=== PATIENT | female | born 1960 | race Caucasian/White ===

== ENCOUNTER → 2017-10-21 | Outpatient (CLI) | payer OTHER ==
[2017-10-21 09:28] LABS: BILIRUBIN,URINE NEGATIVE (NEG); CLARITY,URINE CLEAR; COLOR,URINE YELLOW; GLUCOSE,URINE NEGATIVE (NEG); NITRITE,URINE NEGATIVE (NEG); PROTEIN,URINE NEGATIVE (NEG-TRACE); UROBILINOGEN,URINE 0.2 mg/dL (0.2 mg/dL)
[2017-10-21 10:01] LABS: BACTERIA,URINE 0 /HPF (0-FEW); RBC,URINE OCC /HPF (0-2); SQUAMOUS EPITHELIAL CELL,UR MOD /LPF; WBC,URINE OCC /HPF (0-4)
[2017-10-21 22:13] LABS: MRSA BY PCR Negative (Negative)
== END | disposition home or self-care (01) ==
LOC: SURGPAT 13:15
DX: M17.12 Unilateral primary osteoarthritis, left knee (principal); E11.9 Type 2 diabetes mellitus without complications; I10 Essential (primary) hypertension
CPT/HCPCS: 36415; 81001; 87086; 87641

== ENCOUNTER 2017-11-04 05:54 | Inpatient (IN) | payer OTHER ==
[2017-11-04] MEDS: IV RINGERS,LACTATED 1000ML 1,000 ML IV (06:51)
[2017-11-04] MEDS: HYDROcodone/APAP 7.5/325MG 1 TAB TABLET PO ×3 (06:52→21:40)
[2017-11-04] MEDS: MELOXICAM 7.5 MG TABLET PO (06:52)
[2017-11-04] MEDS ORDERED: ONDANSETRON PF 4 MG/2 ML VIAL. IV (07:00)
[2017-11-04] MEDS ORDERED: fentaNYL PF VIAL 100 MCG/2 ML VIAL IV ×2 (07:00→07:15)
[2017-11-04] MEDS ORDERED: LIDOCAINE 1% PF 2 ML VIAL. ID (07:00)
[2017-11-04] MEDS ORDERED: FAMOTIDINE 20 MG/2 ML VIAL (07:12)
[2017-11-04] MEDS ORDERED: ONDANSETRON PF 4 MG/2 ML VIAL. (07:12)
[2017-11-04] MEDS ORDERED: LIDOCAINE 2% PF Vial for OR 5 ML VIAL. (07:12)
[2017-11-04] MEDS ORDERED: PROPOFOL 20 ML IV (07:12)
[2017-11-04] MEDS ORDERED: DEXAMETHASONE SOD PHOS 20 MG/5 ML VIAL. (07:12)
[2017-11-04] MEDS ORDERED: ROCURONIUM 50 MG/5 ML VIAL. (07:12)
[2017-11-04] MEDS ORDERED: fentaNYL PF VIAL 100 MCG/2 ML VIAL ×2 (07:13→08:08)
[2017-11-04] MEDS ORDERED: MIDAZOLAM HCL/PF 2 MG/2 ML VIAL. (07:13)
[2017-11-04] MEDS ORDERED: MORPHINE SULFATE 4 MG/ML DISP.SYRIN. IV ×2 (07:15)
[2017-11-04] MEDS ORDERED: MORPHINE SULFATE 2 MG/ML DISP.SYRIN. IV (07:15)
[2017-11-04] MEDS ORDERED: PROCHLORPERAZINE 5 MG TABLET. PO (07:15)
[2017-11-04] MEDS ORDERED: MORPHINE SULFATE 10 MG/ML VIAL. IV (07:15)
[2017-11-04] MEDS ORDERED: 0.9 % SODIUM CHLORIDE 10 ML DISP.SYRIN. IV (07:15)
[2017-11-04] MEDS ORDERED: ACETAMINOPHEN 325 MG TABLET. PO (07:15)
[2017-11-04] MEDS ORDERED: diphenhydrAMINE 50 MG/ML VIAL IV (07:15)
[2017-11-04] MEDS ORDERED: CALCIUM CARBONATE 500 MG TAB.CHEW PO (07:15)
[2017-11-04] MEDS ORDERED: traMADol 50 MG TABLET PO ×2 (07:15)
[2017-11-04] MEDS ORDERED: DEXTROSE 50% 25 GM / 50ML DISP.SYRIN. IV (07:15)
[2017-11-04] MEDS ORDERED: PROCHLORPERAZINE 10 MG/2 ML VIAL. IV (07:15)
[2017-11-04] MEDS ORDERED: METOCLOPRAMIDE HCL 10 MG/2 ML VIAL. IV (07:15)
[2017-11-04] MEDS: VANCOMYCIN 1GM IVPB FOR OMNI 250 ML IV (07:20)
[2017-11-04 07:43] LABS: PARTIAL THROMBOPLASTIN TIME 27 SEC (24-38); PROTHROMBIN TIME PATIENT 12.1 SEC (11.7-14.0)
[2017-11-04] MEDS: TRANEXAMIC ACID 1,000 MG in IV NS 50ML -- 1ST BAG INJ (07:50)
[2017-11-04] MEDS: EPINEPHRINE IV (08:00)
[2017-11-04] MEDS: KETOROLAC IV (08:00)
[2017-11-04] MEDS: [UNRECOGNIZED DRUG - OTHER] IV (08:00)
[2017-11-04] MEDS: ROPIVACAINE 0.5% IV (08:00)
[2017-11-04] MEDS ORDERED: GLYCOPYRROLATE 1 MG/5 ML VIAL. (08:21)
[2017-11-04] MEDS ORDERED: NEOSTIGMINE METHYLSULFATE 5 MG/5 ML SYRINGE. (08:21)
[2017-11-04] MEDS ORDERED: SEVOFLURANE 61 TO 120 MINUTES. IH (08:44)
[2017-11-04] MEDS: TRANEXAMIC ACID 1,000 MG in IV NS 50ML -- 2ND BAG INJ (08:50)
[2017-11-04] MEDS ORDERED: KETOROLAC 30 MG/ML INJ FOR OR. INJ (08:51)
[2017-11-04] MEDS ORDERED: NON FORMULARY ITEM (Lisinopril/Hydrochlorothiazide (Lisinopril-Hctz 20-25 Mg Tab) 1 TAB) PO (09:00)
[2017-11-04] MEDS: PROCHLORPERAZINE 10 MG/2 ML VIAL. IV (09:49)
[2017-11-04] MEDS: fentaNYL PF VIAL 100 MCG/2 ML VIAL IV ×3 (09:49→15:22)
[2017-11-04] MEDS: MEPERIDINE PF 25 MG/ML VIAL. IV (10:17)
[2017-11-04 11:25] LABS: POC GLUCOSE 138 mg/dL (70-99)
[2017-11-04] MEDS: IV DEXTROSE 5 %-0.45 % NACL 1,000 ML IV ×2 (16:13→19:00)
[2017-11-04] MEDS: FERROUS SULFATE 325 MG TABLET. PO (16:52)
[2017-11-04] MEDS: WARFARIN 7.5 MG TABLET. PO (16:52)
[2017-11-04] MEDS: CELECOXIB 200 MG CAPSULE. PO (21:40)
[2017-11-04] MEDS: VANCOMYCIN 1 GM in IV 1/2 NORMAL SALINE 250 ML IV (22:49)
[2017-11-04] MEDS: KETOROLAC 30 MG, BUPIVACAINE MPF 0.25% 20 ML, EPINEPHrine 0.5 MG in TOTAL VOLUME SYRING... INT ART (23:01)
[2017-11-05] MEDS: HYDROcodone/APAP 7.5/325MG 1 TAB TABLET PO ×2 (01:15→15:01)
[2017-11-05] MEDS: oxyCODONE/APAP 5/325 1 TAB TABLET PO ×3 (03:32→12:29)
[2017-11-05] MEDS: KETOROLAC 30 MG, BUPIVACAINE MPF 0.25% 20 ML, EPINEPHrine 0.5 MG in TOTAL VOLUME SYRING... INT ART (04:43)
[2017-11-05] MEDS ORDERED: MAGNESIUM HYDROXIDE 2,400 MG/30 ML ORAL.SUSP. PO (06:00)
[2017-11-05 06:40] LABS: HEMATOCRIT 29.5 % (36.0-47.0); HEMOGLOBIN 9.8 g/dL (12.0-15.5); MEAN CORPUSCULAR HGB CONC 33 g/dL (31-37)
[2017-11-05 06:45] LABS: INR 1.3 (0.8-1.1); PROTHROMBIN TIME PATIENT 15.5 SEC (11.7-14.0)
[2017-11-05] MEDS: VANCOMYCIN 1 GM in IV 1/2 NORMAL SALINE 250 ML IV (07:19)
[2017-11-05] MEDS: FERROUS SULFATE 325 MG TABLET. PO ×2 (07:53→16:31)
[2017-11-05] MEDS: CELECOXIB 200 MG CAPSULE. PO ×2 (08:44→20:50)
[2017-11-05] MEDS: LISINOPRIL 20 MG TABLET PO (08:45)
[2017-11-05] MEDS: MULTIVITAMIN with MINERAL TABLET. PO (08:45)
[2017-11-05] MEDS: SENNOSIDES/DOCUSATE 8.6/50MG TABLET. PO (08:45)
[2017-11-05] MEDS: hydroCHLOROthiazide 25 MG TABLET PO (08:45)
[2017-11-05] MEDS ORDERED: BISACODYL 10 MG SUPP.RECT. PR (16:00)
[2017-11-05] MEDS: WARFARIN 5 MG TABLET. PO (16:31)
[2017-11-05] MEDS: HYDROcodone/APAP 10/325 1 TAB TABLET PO (18:13)
[2017-11-05] MEDS: oxyCODONE/APAP 7.5/325 1 TAB TABLET PO (21:45)
[2017-11-05] MEDS: ZOLPIDEM 5 MG TABLET. PO (22:39)
[2017-11-06] MEDS: HYDROcodone/APAP 10/325 1 TAB TABLET PO ×8 (00:43→22:35)
[2017-11-06 06:17] LABS: HEMOGLOBIN 9.4 g/dL (12.0-15.5); MEAN CORPUSCULAR HGB CONC 34 g/dL (31-37)
[2017-11-06 07:07] LABS: INR 1.4 (0.8-1.1); PROTHROMBIN TIME PATIENT 16.5 SEC (11.7-14.0)
[2017-11-06] MEDS: MULTIVITAMIN with MINERAL TABLET. PO (07:41)
[2017-11-06] MEDS: FERROUS SULFATE 325 MG TABLET. PO ×2 (07:41→16:03)
[2017-11-06] MEDS: CELECOXIB 200 MG CAPSULE. PO ×2 (07:41→21:08)
[2017-11-06] MEDS: SENNOSIDES/DOCUSATE 8.6/50MG TABLET. PO (07:42)
[2017-11-06] MEDS: hydroCHLOROthiazide 25 MG TABLET PO (09:00)
[2017-11-06] MEDS: LISINOPRIL 20 MG TABLET PO (09:00)
[2017-11-06] MEDS: WARFARIN 5 MG TABLET. PO (16:03)
[2017-11-06] MEDS: ZOLPIDEM 5 MG TABLET. PO (21:08)
[2017-11-07] MEDS: HYDROcodone/APAP 10/325 1 TAB TABLET PO ×5 (01:43→14:33)
[2017-11-07 04:25] LABS: HEMATOCRIT 27.3 % (36.0-47.0); HEMOGLOBIN 9.4 g/dL (12.0-15.5); MEAN CORPUSCULAR HGB CONC 34 g/dL (31-37)
[2017-11-07 04:31] LABS: INR 1.5 (0.8-1.1); PROTHROMBIN TIME PATIENT 17.2 SEC (11.7-14.0)
[2017-11-07] MEDS: FERROUS SULFATE 325 MG TABLET. PO (07:44)
[2017-11-07] MEDS: SENNOSIDES/DOCUSATE 8.6/50MG TABLET. PO (07:44)
[2017-11-07] MEDS: hydroCHLOROthiazide 25 MG TABLET PO (07:44)
[2017-11-07] MEDS: CELECOXIB 200 MG CAPSULE. PO (07:45)
[2017-11-07] MEDS: LISINOPRIL 20 MG TABLET PO (07:45)
[2017-11-07] MEDS: MULTIVITAMIN with MINERAL TABLET. PO (07:45)
[2017-11-07] MEDS: WARFARIN 5 MG TABLET. PO (14:32)
== END 2017-11-07 15:15 | disposition home health service (06) | DRG 470 ==
LOC: OPSVCIP 05:54 → 4 SOUTHEST 11:00
PROC: 0SRD0J9 Replacement of Left Knee Joint with Synthetic Substitute, Cemented, Open Approach (ICD-10-PCS; principal; 2017-11-04 07:30)
DX: M17.12 Unilateral primary osteoarthritis, left knee (principal); Z88.0 Allergy status to penicillin; Z88.6 Allergy status to analgesic agent; Z91.018 Allergy to other foods
CPT/HCPCS: 36415; 73560; 82962; 85014; 85018; 85610; 85730; 86850; 86900; 86901; 88305; 88311; 97110-GP; 97116-GP; 97150-GP; 97162-GP; 97165-GO; 97530-GO; 97530-GP; 97535-GO; C1713; J0171; J0780; J1100; J1885; J2060; J2175; J2250; J2405; J2704; J2710; J2795; J3010; J3370; J3490; J7030; J7120; S0028

== ENCOUNTER → 2018-06-23 | Outpatient (CLI) | payer OTHER ==
[2017-11-07 12:53] VITALS: BP 93/50
[~2018-06-23] MED LIST: ACIDOPHILUS PROB1 MG PO; CLIN300C8 PO; FERR325T14 PO; GABA600T2 PO; LEVO500T59 PO; LISI1TAB5 PO; LISI1TAB7 PO; MELO15TA23 PO; POTA20TA12 PO; TIZA4TAB PO; WARF-31 PO; WARF-78 PO
[2018-06-23 12:04] LABS: BASO # 0.1 x10^3/uL (0.0-0.2); BASO % 1 % (0-3); EOS # 0.3 x10^3/uL (0.0-0.7); EOS % 4 % (0-3); HEMATOCRIT 41.9 % (36.0-47.0); HEMOGLOBIN 14.5 g/dL (12.0-15.5); LYMPH # 3.3 x10^3/uL (1.0-4.8); LYMPH % 37 % (24-48); MEAN CORPUSCULAR HEMOGLOBIN 30 pg (25-35); MEAN CORPUSCULAR HGB CONC 35 g/dL (31-37); MEAN CORPUSCULAR VOLUME 86 fL (79-100); MONO # 0.6 x10^3/uL (0.0-1.1); MONO % 6 % (0-9); NEUT # 4.8 x10^3uL (1.8-7.7); NEUT % 52 % (31-73); PLATELET COUNT 201 x10^3/uL (140-400); RED BLOOD COUNT 4.85 x10^6/uL (3.50-5.40); RED CELL DISTRIBUTION WIDTH 14.4 % (11.5-14.5); WHITE BLOOD COUNT 9.1 x10^3/uL (4.0-11.0)
[2018-06-23 12:06] LABS: BILIRUBIN,URINE NEGATIVE (NEG); CLARITY,URINE CLEAR; COLOR,URINE YELLOW; NITRITE,URINE NEGATIVE (NEG); PH,URINE 7.5; PROTEIN,URINE NEGATIVE (NEG-TRACE); UROBILINOGEN,URINE 0.2 mg/dL (0.2 mg/dL)
[2018-06-23 12:12] LABS: PROTHROMBIN TIME PATIENT 12.8 SEC (11.7-14.0)
[2018-06-23 13:03] LABS: BACTERIA,URINE 0 /HPF (0-FEW); RBC,URINE 0 /HPF (0-2); SQUAMOUS EPITHELIAL CELL,UR FEW /LPF; WBC,URINE 0 /HPF (0-4)
== END | disposition home or self-care (01) ==
LOC: SURGPAT 09:54
PROVIDERS: ATTEND Orthopaedic Surgery Sports Medicine
DX: Z01.818 Encounter for other preprocedural examination (principal); M17.11 Unilateral primary osteoarthritis, right knee; Z88.0 Allergy status to penicillin; Z88.5 Allergy status to narcotic agent
CPT/HCPCS: 36415; 81001; 85025; 85610; 85651; 85730; 87086; 87641

== ENCOUNTER 2018-07-07 05:45 | Inpatient (IN) | payer OTHER ==
[~2018-07-07] VITALS: Ht 175.3 cm; Wt 104.3 kg
[2018-07-07] VITALS (9 sets, daily range): BP systolic 95–121; BP diastolic 53–69
[2018-07-07] MEDS ORDERED: HYDROcodone/APAP 7.5/325MG 1 TAB TABLET PO PRN ×2 (06:00→09:30)
[2018-07-07] MEDS ORDERED: MELOXICAM 7.5 MG TABLET PO PRN (06:00)
[2018-07-07] MEDS ORDERED: TRANEXAMIC ACID 1,000 MG in IV NS 50ML -- 1ST BAG INJ ONE (06:00)
[2018-07-07] MEDS ORDERED: KETOROLAC 30MG VIAL 30 MG, ROPIVacaine 0.5% PF 60 ML, EPINEPHrine 0.5 MG in IV NORMAL S... INT ART ONE (06:00)
[2018-07-07] MEDS ORDERED: CLINDAMYCIN 900MG PREMIX 50 ML IV PRN (06:00)
[2018-07-07] MEDS ORDERED: PROCHLORPERAZINE 10 MG/2 ML VIAL. IV PRN ×2 (07:00→09:30)
[2018-07-07] MEDS ORDERED: IV RINGERS,LACTATED 1000ML 1,000 ML IV SCH (07:00)
[2018-07-07] MEDS ORDERED: LIDOCAINE 1% PF 2 ML VIAL. ID PRN (07:00)
[2018-07-07] MEDS ORDERED: fentaNYL PF VIAL 100 MCG/2 ML VIAL IV PRN ×2 (07:00→09:30)
[2018-07-07] MEDS ORDERED: ONDANSETRON PF 4 MG/2 ML VIAL. IV PRN (07:00)
[2018-07-07] MEDS ORDERED: VANCOMYCIN 1GM IVPB FOR OMNI 250 ML IV ONE (07:15)
[2018-07-07] MEDS ORDERED: ONDANSETRON PF 4 MG/2 ML VIAL. ONE (07:18)
[2018-07-07] MEDS ORDERED: LIDOCAINE 2% PF Vial for OR 5 ML VIAL. ONE (07:18)
[2018-07-07] MEDS ORDERED: fentaNYL PF VIAL 100 MCG/2 ML VIAL ONE (07:18)
[2018-07-07] MEDS ORDERED: MIDAZOLAM HCL/PF 2 MG/2 ML VIAL. ONE (07:18)
[2018-07-07] MEDS ORDERED: PROPOFOL 20 ML IV ONE (07:18)
[2018-07-07] MEDS ORDERED: FAMOTIDINE 20 MG/2 ML VIAL ONE (07:18)
[2018-07-07] MEDS ORDERED: DEXAMETHASONE SOD PHOS 20 MG/5 ML VIAL. ONE (07:18)
[2018-07-07] MEDS ORDERED: ROCURONIUM 50 MG/5 ML VIAL. ONE (07:18)
[2018-07-07 07:49] LABS: PROTHROMBIN TIME PATIENT 12.8 SEC (11.7-14.0)
[2018-07-07] MEDS ORDERED: PHENYLEPHRINE in 0.9% NACL PF 1 MG/10 ML SYRINGE. IV ONE (07:50)
[2018-07-07] MEDS ORDERED: TRANEXAMIC ACID 1,000 MG in IV NS 50ML -- 2ND BAG INJ ONE (08:00)
[2018-07-07] MEDS ORDERED: NEOSTIGMINE METHYLSULFATE 5 MG/5 ML SYRINGE. ONE (08:57)
[2018-07-07] MEDS ORDERED: GLYCOPYRROLATE 1 MG/5 ML VIAL. ONE (08:57)
[2018-07-07] MEDS ORDERED: SEVOFLURANE > 120 MINUTES. IH ONE (09:13)
[2018-07-07] MEDS ORDERED: traMADol 50 MG TABLET PO PRN ×2 (09:30)
[2018-07-07] MEDS ORDERED: diphenhydrAMINE 50 MG/ML VIAL IV PRN (09:30)
[2018-07-07] MEDS ORDERED: CALCIUM CARBONATE 500 MG TAB.CHEW PO PRN (09:30)
[2018-07-07] MEDS ORDERED: METOCLOPRAMIDE HCL 10 MG/2 ML VIAL. IV PRN (09:30)
[2018-07-07] MEDS ORDERED: 0.9 % SODIUM CHLORIDE 10 ML DISP.SYRIN. IV PRN (09:30)
[2018-07-07] MEDS ORDERED: DEXTROSE 50% 25 GM / 50ML DISP.SYRIN. IV PRN (09:30)
[2018-07-07] MEDS ORDERED: PROCHLORPERAZINE 5 MG TABLET. PO PRN (09:30)
[2018-07-07] MEDS ORDERED: oxyCODONE/APAP 5/325 1 TAB TABLET PO PRN (09:30)
[2018-07-07] MEDS ORDERED: ZOLPIDEM 5 MG TABLET. PO PRN (09:30)
[2018-07-07] MEDS ORDERED: ACETAMINOPHEN 325 MG TABLET. PO PRN (09:30)
--- NOTE | 2018-07-07 09:51 | PDOC4 ---
Operative Note Operative Note Date of procedure: 07/07/2018 Surgeon: Boubacar Brink Counselor Marriage And Family: Hector Nolasco APRN Preoperative diagnosis advanced primary right knee degenerative joint disease Postoperative diagnosis: Same Procedure performed: Right total knee arthroplasty Anesthesia: Gen. Tourniquet time: 47 minutes Blood loss: 50 mL Components inserted: Bacon and nephew Oxinium size 5 femur, size 3 journey 2 tibial baseplate, 23 biconvex patella, 9 mm thick polyethylene articular insert Findings: Advanced primary degenerative joint disease of right knee Reason for procedure: Patient is a very pleasant 58-year-old female who is happy with her outcome after a left total knee arthroplasty with myself a short while ago. He had initially seen her for bilateral knee pain. Her clinical and radiographic examination were consistent with the above preoperative diagnosis. She had tried and failed conservative therapies including interarticular injections, weight loss, anti-inflammatories and despite this her pain progressed, her left side was worse we did decide first. When she had recovered well enough from surgery, she wished to proceed with the right side. We reviewed the risks, benefits, and alternatives and she elected to proceed with right total knee arthroplasty. Description of procedure: Patient was greeted in the preoperative holding area by myself for the correct extremity was verified and marked. She was taken back to the operative suite and her antibiotic started as she was brought back. Once in the operating room, she was transferred gently supine to the operating table and secured the bed with all pressure points padded. She underwent successful induction of a general anesthetic. A padded bump laterally at her hip and padded bar across foot of the bed to help maintain her leg in 90 passively at her knee were applied to the OR table. Nonsterile tourniquet taped in place to her right upper thigh. Examination under anesthesia demonstrated range of motion from 0-135, right knee was stable to varus and valgus in extension and 30 of flexion. We then proceeded prep and drape right lower extremity in our usual sterile fashion including an Ioban Trimble. We then conducted our standard preoperative timeout. I palpated and marked surface surface anatomy and brayan a line from my standard anterior midline skin incision. Tourniquet was insufflated after an Esmarch was applied to the right lower extremity. Tourniquet was set at 2 or 50 mmHg. I then incised skin with a scalpel and dissected down to the extensor mechanism with electrocautery, cauterizing bleeders as a were encountered. Identified the quadriceps tendon, borders of the patella and patellar tendon as well as tibial tubercle. After this, I performed my standard medial parapatellar arthrotomy. I then performed my medial release with combination of Guzman and electrocautery. I then bluntly dissected the fat pad off the posterior aspect of the patellar tendon and protected the tendon with an Army-Hahira while I excised the fat pad. The knee was then flexed, I marked the epicondylar axis and Whitesides line. After this, I took down the cruciate ligaments. I then gained entry to the distal femur with the drill, decompressing as I entered. I then placed my long intramedullary guide kenna and impacted my guide into position followed by placing 3 pins his care. I then made my distal femoral cut after placing my Z retractors. I removed all loose bony debris. I then removed my distal femoral cutting block, directed my attention to incising, it was a size 5. After this, I placed my distal femoral 5 in 1 cutting block in position, I impacted it to fully seated and placed my threaded pins. I then made my distal femoral cuts after repositioned my retractors. I removed all loose bony pieces. I took care to remove any osteophytes posteriorly. After this, we repositioned our retractors and a padded our popliteal retractor. The tibia was subluxed anteriorly and I used my extra medullary tibial cutting guide and pinned this into position I then made my proximal tibial cut. The bony remnant was delivered from the operative field with circumferential electrocautery. The leg was brought out into extension after the retractors were removed. The spacer block and drop kenna confirmed good alignment and stability. A lamina flux tube attendant was then introduced into the knee, the menisci were excised, leaving a rim peripherally for later identification. We flexed the knee and repositioned at all of our retractors. I then sized and pinned into place and a trial tibial baseplate, size 3. We then reamed and punched for the fins. I then impacted the trial femoral component in place, we then reamed and punched for the cam portion. After this, a trial polyethylene was introduced, size 10, but she does not quite have full extension and I downsized to a 9. This gave her range of motion from 0-140, knee that was stable to varus and valgus in extension and mid flexion. I then directed my attention to the patella and sized and reamed for a 23 biconvex patella. With all trial components and there was excellent patellar tracking. All trial components were then removed and the bony surfaces were thoroughly irrigated. After this, we proceeded cement in place our tibial component followed by femoral component taking care to remove excess bone cement. A trial 9 mm articular insert was placed and secured. The cement was allowed to polymerize with the leg in extension. I then clamped my patellar button in place with cement as well. I then injected my periarticular mixture into the yuan-incisional soft tissues. After cement hardened, took knee through range of motion tested stability again and was happy with the above size. We then removed the trial articular insert, thoroughly irrigated the operative field again and then secured and clamped in place the 9 mm thick polyethylene articular insert. Range of motion and stability were the same. Tourniquet was then let down and some bleeders were cauterized. She had some oozing from the distal femur and expose bone and therefore I placed a 1/8 inch Hemovac exiting superolaterally from the knee. After this,, the arthrotomy was closed with simple interrupted #1 Vicryl, arthrotomy closure tested in flexion and no extravasation of blood was noted. After this, inverted interrupted 2-0 Vicryl in a multilayered fashion was used for subcutaneous tissue and running 4-0 Monocryl in a buried subcuticular fashion was used for skin. Prior to wound closure all counts correct 2. No complications. At the conclusion of the surgery, the leg was cleansed and dried and our Bacon & Nephew royer wound dressing was applied. She is awake from anesthesia and transferred gently supine to the recovery room cart and taken to PACU in a stable and expected condition. Postoperative plan is to admit her to the joint center for DVT and antibiotic prophylaxis as well as to begin her rehabilitation. She can weight- bear as tolerated. BOUBACAR BRINK II, MD Jul 07, 2018 09:51
[2018-07-07] MEDS: fentaNYL PF VIAL 100 MCG/2 ML VIAL IV PRN ×5 (09:57→11:45)
--- NOTE | 2018-07-07 10:10 | RAD ---
EXAM: AP and lateral views of the right knee DATE: 07/07/2018 9:28 AM INDICATION: POST OP RIGHT TOTAL KNEE REPLACEMENT COMPARISON: No Prior FINDINGS: Postoperative changes of right total knee arthroplasty are now seen, in good alignment without definite hardware complication. Expected postoperative soft tissue changes are seen. No evidence of acute fracture or dislocation. IMPRESSION: 1. Postoperative changes of right total knee arthroplasty, in good alignment without definite hardware complication or fracture. Electronically signed by: Kehinde Hough MD (07/07/2018 10:07 AM) [id number]
[2018-07-07] MEDS: HYDROcodone/APAP 10/325 1 TAB TABLET PO PRN ×3 (14:29→21:20)
[2018-07-07] MEDS: IV DEXTROSE 5 %-0.45 % NACL 1,000 ML IV SCH ×2 (14:30→21:03)
[2018-07-07] MEDS ORDERED: WARFARIN 7.5 MG TABLET. PO ONE (16:00)
[2018-07-07] MEDS: FERROUS SULFATE 325 MG TABLET. PO SCH (16:34)
[2018-07-07] MEDS ORDERED: VANCOMYCIN 1 GM in IV NORMAL SALINE 250ML 250 ML IV ONE (19:30)
[2018-07-07] MEDS: GABAPENTIN 300 MG CAPSULE. PO SCH (21:09)
[2018-07-07] MEDS: CELECOXIB 100 MG CAPSULE. PO SCH (21:09)
[2018-07-07] MEDS: tiZANidine 4 MG TABLET. PO PRN (21:18)
[2018-07-08] MEDS: HYDROcodone/APAP 10/325 1 TAB TABLET PO PRN ×6 (01:59→20:37)
[2018-07-08 03:03] VITALS: BP 105/61
[2018-07-08 05:22] LABS: HEMATOCRIT 33.9 % (36.0-47.0); HEMOGLOBIN 11.6 g/dL (12.0-15.5)
[2018-07-08 05:33] LABS: PROTHROMBIN TIME PATIENT 14.7 SEC (11.7-14.0)
[2018-07-08] MEDS ORDERED: MAGNESIUM HYDROXIDE 2,400 MG/30 ML ORAL.SUSP. PO PRN (06:00)
[2018-07-08 06:30] VITALS: BP 97/55
[2018-07-08] MEDS: CELECOXIB 100 MG CAPSULE. PO SCH ×2 (08:05→20:36)
[2018-07-08] MEDS: SENNOSIDES/DOCUSATE 8.6/50MG TABLET. PO SCH (08:05)
[2018-07-08] MEDS: MULTIVITAMIN with MINERAL TABLET. PO SCH (08:05)
[2018-07-08] MEDS: FERROUS SULFATE 325 MG TABLET. PO SCH ×2 (08:05→17:42)
[2018-07-08 08:06] VITALS: BP 105/55
[2018-07-08] MEDS: hydroCHLOROthiazide 12.5 MG CAPSULE PO SCH (08:06)
[2018-07-08] MEDS: LISINOPRIL 20 MG TABLET PO SCH (09:00)
--- NOTE | 2018-07-08 09:45 | DISCH ---
DISCHARGE INSTRUCTIONS Condition on Discharge Condition on Discharge: Stable Activity After Discharge Activity Instructions for Disc: Walk in house Bathing Instructions: Shower-keep dressing dry, No Tub Bath until see Lifting Instructions after Dis: No heavy lifting, No pulling or pushing, Do not lift >10 pounds Exercise Instruction after Dis: Exercise per therapy Driving Instructions after Dis: Do not drive Weight Bearing Status after Di: No restrictions, Full weight bearing, As tolerated Diet after Discharge Diet after Discharge: Diabetic No Calorie Level Diet Texture: Regular Liquid Texture: Thin Liquid Swallowing Supervision: None needed Wound Incision Care Wound/Incision Care: Ice to area for comfort, Keep wound/cast CDI, Keep wound elevated, Do not change dressing Checks after Discharge Checks after discharge: Check blood sugar, ac/hs, Check your Temp as needed Community/Resources/Services Services at Discharge: Home Health Care Services Contacting the after DC Call your doctor for: Concerns you may have Follow-Up Follow up with: Matteo in 2 wks Treatment/Equipment after DC Adaptive Equipment Issued: Front wheeled walker Warfarin Follow-Up Warfarin Follow UP: per Pharmacy LAKSHMI BRINK II, MD Jul 08, 2018 09:45
--- NOTE | 2018-07-08 09:49 | DISCH ---
DISCHARGE WITH HOME HEALTH DISCHARGE INFORMATION: Discharge Date: Jul 09, 2018 Final Diagnosis: Advanced right knee degenerative joint disease, status post arthroplasty Condition on Discharge: Stable HOME HEALTH: Face to Face: I certify this patient is under my care and that I, or a nurse practitioner or physician's assistant facility manager working with me, had a face to face encounter that meets the physician face to face encounter requirements with this patient on []. Medical Complications: S/P Joint Replacement Senior Care For: Admin/Educate Injections Physical Therapy For: Evalulation/Treatment Occupational Therapy For: Evaluation/Treatment Pt Meets Homebound Status: Poor coordination w/ amb., Unsteady balance w/ amb, POST DISCHARGE ORDERS: Activity Instructions for Disc: Walk in house Weight Bearing Status after Di: No restrictions, Full weight bearing, As tolerated Bathing Instructions: Shower-keep dressing dry, No Tub Bath until see Wound/Incision Care: Ice to area for comfort, Keep wound/cast CDI, Keep wound elevated, Do not change dressing CHECKS AFTER DISCHARGE: Checks after discharge: Check blood sugar, ac/hs, Check your Temp as needed FOLLOW-UP: Follow up with: Matteo in 2 wks Warfarin Follow UP: per Pharmacy TREATMENT/EQUIPMENT ORDERS: Adaptive Equipment Issued: Front wheeled walker CERTIFICATION STATEMENT: Certification Statement: Certification Statement: Based on the above finding, I certify that this patient is confined to the home and needs intermittent care home care, physical therapy and/or speech therapy, or continues to need occupational therapy.~ This patient is under my care, and I have initiated the establishment of the plan of care.~ This patient will be followed by myself or a community physician who will periodically review the plan of care. Home Meds Reported Medications Lisinopril/Hydrochlorothiazide (LISINOPRIL-HCTZ 20-12.5 MG TAB) 1 Each Tablet, 1 TAB PO DAILY, #30 TAB 5 Refills 06/23/18 Ferrous Sulfate (FERROUS SULFATE) 325 Mg Tablet, 325 MG PO DAILY, TAB 06/23/18 Tizanidine Hcl (TIZANIDINE HCL) 4 Mg Tablet, 4 MG PO HS PRN for MUSCLE SPASMS, TAB 06/23/18 Gabapentin (GABAPENTIN) 600 Mg Tablet, 600 MG PO HS, TAB 06/23/18 Discontinued Reported Medications Meloxicam (MELOXICAM) 15 Mg Tablet, 15 MG PO DAILY, TAB 06/23/18 LAKSHMI BRINK II, MD Jul 08, 2018 09:48
--- NOTE | 2018-07-08 09:50 | PDOC ---
ORTHO PROGRESS NOTES Subjective She feels like her pain is tolerable. She has been working on the rehabilitation exercises while sitting. Vitals Vital Signs Date Time Temp Pulse Resp B/P (MAP) Pulse Ox O2 Delivery O2 Flow Rate FiO2 07/08/18 08:06 74 22 105/55 (72) Room Air 07/08/18 07:31 96 07/08/18 06:30 97.8 97.8 07/07/18 12:42 2.0 Labs Laboratory Tests Test 07/07/18 06:25 07/08/18 04:00 Prothrombin Time 12.8 SEC (11.7-14.0) 14.7 SEC (11.7-14.0) Prothromb Time International Ratio 1.0 (0.8-1.1) 1.2 (0.8-1.1) Activated Partial Thromboplast Time 28 SEC (24-38) Hemoglobin 11.6 g/dL (12.0-15.5) Hematocrit 33.9 % (36.0-47.0) Mean Corpuscular Hemoglobin Concent 34 g/dL (31-37) Laboratory Tests Test 07/08/18 04:00 Hemoglobin 11.6 g/dL (12.0-15.5) Hematocrit 33.9 % (36.0-47.0) Mean Corpuscular Hemoglobin Concent 34 g/dL (31-37) Prothrombin Time 14.7 SEC (11.7-14.0) Prothromb Time International Ratio 1.2 (0.8-1.1) Notes Dressing has some bloody drainage at the inferior portion. An effusion is present. Range of motion is 10 to 80. Normal motor and sensation is present distally Assessment and Plan I think she may be ready for discharge with home health care tomorrow. We will see how she does today. LAKSHMI BRINK II, MD Jul 08, 2018 09:50
[2018-07-08 12:00] VITALS: BP 125/64
[2018-07-08] MEDS ORDERED: WARFARIN 5 MG TABLET. PO ONE (16:00)
[2018-07-08] MEDS ORDERED: BISACODYL 10 MG SUPP.RECT. PR PRN (16:00)
[2018-07-08 18:19] VITALS: BP 132/79
[2018-07-08] MEDS: GABAPENTIN 300 MG CAPSULE. PO SCH (20:36)
[2018-07-08] MEDS: tiZANidine 4 MG TABLET. PO PRN (20:36)
[2018-07-09] MEDS: HYDROcodone/APAP 10/325 1 TAB TABLET PO PRN ×3 (01:40→12:06)
[2018-07-09 04:45] LABS: HEMATOCRIT 32.1 % (36.0-47.0); HEMOGLOBIN 11.1 g/dL (12.0-15.5)
[2018-07-09 04:50] LABS: PROTHROMBIN TIME PATIENT 18.1 SEC (11.7-14.0)
[2018-07-09 05:00] VITALS: BP 124/62
--- NOTE | 2018-07-09 07:34 | PDOC ---
ORTHO PROGRESS NOTES Subjective Patient states knee very painful. Post-op Day: 2 Procedure Right Total Knee Arthroplasty Vitals Vital Signs Date Time Temp Pulse Resp B/P (MAP) Pulse Ox O2 Delivery O2 Flow Rate FiO2 07/09/18 05:00 96.8 79 24 124/62 (82) 94 Room Air 96.8 Labs Laboratory Tests Test 07/08/18 04:00 07/09/18 04:00 Hemoglobin 11.6 g/dL (12.0-15.5) 11.1 g/dL (12.0-15.5) Hematocrit 33.9 % (36.0-47.0) 32.1 % (36.0-47.0) Mean Corpuscular Hemoglobin Concent 34 g/dL (31-37) 35 g/dL (31-37) Prothrombin Time 14.7 SEC (11.7-14.0) 18.1 SEC (11.7-14.0) Prothromb Time International Ratio 1.2 (0.8-1.1) 1.6 (0.8-1.1) Laboratory Tests Test 07/09/18 04:00 Hemoglobin 11.1 g/dL (12.0-15.5) Hematocrit 32.1 % (36.0-47.0) Mean Corpuscular Hemoglobin Concent 35 g/dL (31-37) Prothrombin Time 18.1 SEC (11.7-14.0) Prothromb Time International Ratio 1.6 (0.8-1.1) Assessment and Plan Knee with swelling Dressing with old dried blood visible N/V intact distally encourage PT and knee flexion. Pain control AGNES MARTIN APRN Jul 09, 2018 07:34
--- NOTE | 2018-07-09 08:12 | PATHOLOGY ---
[facility] Accession Number: [id number] . 01 Material submitted: . BONE,RIGHT KNEE . 01 Clinical history: . Knee pain . 02 Diagnosis: Segments of bone and soft tissue, right total knee arthroplasty: - Advanced degenerative arthritis. . (JPM:vjm;07/08/2018) [facility]/07/08/2018 . 02 Electronically signed: . Elian Kong MD, Pathologist NPI- [id number] . 01 Gross description: . The specimen is received in formalin, labeled "Shakir Mcgill, right knee bone", consists of multiple segments of beal-yellow bone, yellow lobulated and minor-white fibrous tissue containing recognizable portions of tibial plateau, patella,and meniscus measuring 11.5 x 9.0 x 2.5 cm in aggregate. Eburnation and peripheral osteophytes are identified. The attached fibrous soft tissue is beal-brown. Compliance Paralegal tissue is submitted in A1 after decalcification. ([facility]; 07/07/2018) [facility] . 02 Pathologist provided ICD-10: M17.11 . 02 CPT . 665052, [id number] Specimen Comment: A courtesy copy of this report has been sent to Specimen Comment: [phone], . Specimen Comment: Report sent to / DR CHRISTIANSON Specimen Comment: A duplicate report has been generated due to demographic updates. Performed at: 01 [facility] [address] [id number] MD Wilbert Martinez MD Phone: [phone] Performed at: 02 [facility] [address] [place], [place] [id number] MD Elian Kong MD Phone: [phone]
[2018-07-09] MEDS: MULTIVITAMIN with MINERAL TABLET. PO SCH (08:34)
[2018-07-09] MEDS: SENNOSIDES/DOCUSATE 8.6/50MG TABLET. PO SCH (08:34)
[2018-07-09] MEDS: FERROUS SULFATE 325 MG TABLET. PO SCH ×2 (08:34→16:01)
[2018-07-09] MEDS: hydroCHLOROthiazide 12.5 MG CAPSULE PO SCH (08:35)
[2018-07-09] MEDS: CELECOXIB 100 MG CAPSULE. PO SCH ×2 (08:41→21:49)
[2018-07-09] MEDS: LISINOPRIL 20 MG TABLET PO SCH (08:44)
[2018-07-09] MEDS: oxyCODONE/APAP 7.5/325 1 TAB TABLET PO PRN ×3 (12:07→21:49)
[2018-07-09] MEDS: fentaNYL PF VIAL 100 MCG/2 ML VIAL IV PRN ×3 (12:09→20:09)
[2018-07-09] MEDS ORDERED: WARFARIN 3 MG TABLET. PO ONE (13:00)
[2018-07-09 18:20] VITALS: BP 110/54
[2018-07-09] MEDS: GABAPENTIN 300 MG CAPSULE. PO SCH (21:49)
[2018-07-09] MEDS: tiZANidine 4 MG TABLET. PO PRN (21:49)
[2018-07-10] MEDS: oxyCODONE/APAP 7.5/325 1 TAB TABLET PO PRN ×3 (02:59→10:48)
[2018-07-10 05:34] LABS: HEMATOCRIT 34.8 % (36.0-47.0); HEMOGLOBIN 11.6 g/dL (12.0-15.5)
[2018-07-10 05:47] VITALS: BP 105/64
[2018-07-10 08:30] VITALS: BP 99/63
[2018-07-10 08:57] VITALS: BP 99/63
[2018-07-10] MEDS: MULTIVITAMIN with MINERAL TABLET. PO SCH (08:57)
[2018-07-10] MEDS: SENNOSIDES/DOCUSATE 8.6/50MG TABLET. PO SCH (08:57)
[2018-07-10] MEDS: FERROUS SULFATE 325 MG TABLET. PO SCH (08:57)
[2018-07-10] MEDS: hydroCHLOROthiazide 12.5 MG CAPSULE PO SCH (08:57)
[2018-07-10] MEDS: LISINOPRIL 20 MG TABLET PO SCH (08:57)
[2018-07-10] MEDS: CELECOXIB 100 MG CAPSULE. PO SCH (08:57)
[2018-07-10] MEDS ORDERED: WARFARIN 5 MG TABLET. PO ONE (11:00)
--- NOTE | 2018-07-10 13:06 | PDOC3 ---
Discharge Summary Visit Information Date of Admission: Jul 07, 2018 Date of Discharge: Jul 10, 2018 Admitting Diagnosis: advanced right knee primary degenerative joint disease Brief Hospital Course Allergies Allergies Coded Allergies Type Severity Reaction Last Updated Verified Penicillins Allergy Intermediate hives 11/04/17 Yes adhesive tape Allergy Unknown TAPE USED ON KNEE SURGERY, CAUSED BLISTERS 07/10 Yes coconut Adverse Reaction Intermediate Rash 11/04/17 Yes morphine Adverse Reaction Intermediate Nausea and Vomiting 11/04/17 Yes Vital Signs Vital Signs Date Time Temp Pulse Resp B/P (MAP) Pulse Ox O2 Delivery O2 Flow Rate FiO2 07/10/18 08:57 76 99/63 07/10/18 07:28 Room Air 07/10/18 05:47 98.0 20 99 98.0 Lab Results Laboratory Tests Test 07/09/18 04:00 07/10/18 04:43 Hemoglobin 11.1 g/dL (12.0-15.5) 11.6 g/dL (12.0-15.5) Hematocrit 32.1 % (36.0-47.0) 34.8 % (36.0-47.0) Mean Corpuscular Hemoglobin Concent 35 g/dL (31-37) 34 g/dL (31-37) Prothrombin Time 18.1 SEC (11.7-14.0) 17.0 SEC (11.7-14.0) Prothromb Time International Ratio 1.6 (0.8-1.1) 1.4 (0.8-1.1) Laboratory Tests Test 07/10/18 04:43 Hemoglobin 11.6 g/dL (12.0-15.5) Hematocrit 34.8 % (36.0-47.0) Mean Corpuscular Hemoglobin Concent 34 g/dL (31-37) Prothrombin Time 17.0 SEC (11.7-14.0) Prothromb Time International Ratio 1.4 (0.8-1.1) Brief Hospital Course Ms. Mcgill is a 58 old female who presented to my outpatient orthopedic surgery clinic with complaints of severe and progressive pain that failed conservative therapies including injections. We had a discussion of the risks, benefits, alternatives to total knee arthroplasty and she elected to proceed. She tolerated surgery well and recovered well from anesthesia in the PACU. She was then taken to the joint Center for care and observation. She did receive PT , OT, DVT and antibiotic prophylaxis. She recovered well from surgery and remained hemodynamically stable and afebrile throughout the hospitalization. Pain was controlled on oral pain medicine at the time of discharge. Good progress was made with therapy throughout the hospitalization, and activities of daily living were accomplished by the patient. The incision was clean dry and intact and the operative extremity had normal motor and sensation. Discharge Information Condition at Discharge: Stable Follow Up: Weeks Disposition/Orders: D/C to Home w/ HH Scheduled Ferrous Sulfate (Ferrous Sulfate) 325 Mg Tablet, 325 MG PO DAILY, (Reported) Entered as Reported by: SIMON RAYGOZA on 06/23/18 1020 Last Taken: Unknown Dose on 07/06/18 Last Action: HELD on 07/07/18935 by KELSI BRINK MD Gabapentin (Gabapentin) 600 Mg Tablet, 600 MG PO HS, (Reported) Entered as Reported by: SIMON RAYGOZA on 06/23/18 1015 Last Taken: Unknown Dose on 07/06/18 Last Action: Converted on 07/07/18935 by KELSI BRINK MD Lisinopril/Hydrochlorothiazide (Lisinopril-Hctz 20-12.5 Mg Tab) 1 Each Tablet, 1 TAB PO DAILY, #30 Ref 5 (Reported) Entered as Reported by: SIMON RAYGOZA on 06/23/18 1144 Last Taken: Unknown Dose on 07/06/18 Last Action: Converted on 07/07/18935 by KELSI BRINK MD Scheduled PRN Tizanidine Hcl (Tizanidine Hcl) 4 Mg Tablet, 4 MG PO HS PRN for MUSCLE SPASMS, ( Reported) Entered as Reported by: SIMON RAYGOZA on 06/23/18 1016 Last Taken: Unknown Dose on 07/06/18 Last Action: Converted on 07/07/18935 by KELSI BRINK MD Discontinued Medications Meloxicam (Meloxicam) 15 Mg Tablet, 15 MG PO DAILY, (Reported) Entered as Reported by: SIMON RAYGOZA on 06/23/18 1015 Last Taken: Unknown Dose on 07/06/18 Last Action: HELD on 07/07/18935 by KELSI BRINK MD Patient Instructions Patient Instructions She will be discharged home. Home health care has been set up. We will get her started on outpatient therapy as soon as we are able. The patient will be on Coumadin for a month. She can weight-bear as tolerated. Worrisome signs and symptoms that should prompt a phone call to my office were discussed. We' ll see her back in 2 weeks, sooner should a problem arise. LAKSHMI BRINK II, MD Jul 10, 2018 13:06
--- NOTE | 2018-07-10 13:07 | PDOC ---
ORTHO PROGRESS NOTES Subjective Maria T's pain is about the same. No new concerns. Vitals Vital Signs Date Time Temp Pulse Resp B/P (MAP) Pulse Ox O2 Delivery O2 Flow Rate FiO2 07/10/18 08:57 76 99/63 07/10/18 07:28 Room Air 07/10/18 05:47 98.0 20 99 98.0 Labs Laboratory Tests Test 07/09/18 04:00 07/10/18 04:43 Hemoglobin 11.1 g/dL (12.0-15.5) 11.6 g/dL (12.0-15.5) Hematocrit 32.1 % (36.0-47.0) 34.8 % (36.0-47.0) Mean Corpuscular Hemoglobin Concent 35 g/dL (31-37) 34 g/dL (31-37) Prothrombin Time 18.1 SEC (11.7-14.0) 17.0 SEC (11.7-14.0) Prothromb Time International Ratio 1.6 (0.8-1.1) 1.4 (0.8-1.1) Laboratory Tests Test 07/10/18 04:43 Hemoglobin 11.6 g/dL (12.0-15.5) Hematocrit 34.8 % (36.0-47.0) Mean Corpuscular Hemoglobin Concent 34 g/dL (31-37) Prothrombin Time 17.0 SEC (11.7-14.0) Prothromb Time International Ratio 1.4 (0.8-1.1) Notes She is awake and alert and sitting in a chair. Her soft tissues show some effusion or edema but look like they're healing appropriately. For a small amount of drainage at the dressing. She remains neurovascularly intact in her operative extremity Assessment and Plan She can be discharged home with home health care. Okay to weight-bear as tolerated. Coumadin for 1 month. We will see her back in 2 weeks. LAKSHMI BRINK II, MD Jul 10, 2018 13:07
== END 2018-07-10 11:19 | disposition home health service (06) | DRG 470 ==
LOC: OPSVCIP 05:45 → 4 SOUTHEST 11:20
PROVIDERS: ADMIT Orthopaedic Surgery Sports Medicine; ATTEND Orthopaedic Surgery Sports Medicine
PROC: 0SRC069 Replacement of Right Knee Joint with Oxidized Zirconium on Polyethylene Synthetic Substitute, Cemented, Open Approach (ICD-10-PCS; principal; 2018-07-07 07:30)
DX: M17.11 Unilateral primary osteoarthritis, right knee (principal); Z96.652 Presence of left artificial knee joint; Z88.5 Allergy status to narcotic agent; Z88.0 Allergy status to penicillin; Z91.018 Allergy to other foods; Z91.048 Other nonmedicinal substance allergy status
CPT/HCPCS: 36415; 73560; 85014; 85018; 85610; 85730; 86850; 86900; 86901; 88305; 88311; 99406; A7015; C1713; J0171; J0780; J1100; J1885; J2001; J2250; J2370; J2405; J2704; J2710; J2795; J3010; J3370; J3490; J7030; J7050; J7120; 97110; 97116; 97150; 97530; C1769

== ENCOUNTER → 2018-10-20 | Outpatient (CLI) | payer OTHER ==
[~2018-10-20] MED LIST changes: -GABA600T2 PO; +GABA600T7 PO
--- NOTE | 2018-10-20 09:00 | KCIC ---
Examination: Ultrasound left lower extremity HISTORY: History of posterior left knee cyst/lump in the posterior thigh region. COMPARISON: None available FINDINGS: Ultrasound of the left posterior thigh and popliteal region are performed. No evidence of cysts or masses identified in the posterior thigh or the popliteal region. No evidence of DVT in the popliteal region. IMPRESSION: No evidence of deep venous thrombosis or cyst or masses identified in the posterior thigh and gluteal region. Electronically signed by: Shaw Pedraza MD (10/20/2018 8:56 AM) [place] [id number]
== END | disposition home or self-care (01) ==
LOC: KCIC US 08:03
PROVIDERS: ATTEND Orthopaedic Surgery Sports Medicine
DX: M25.862 Other specified joint disorders, left knee (principal)
CPT/HCPCS: 76881

== ENCOUNTER 2020-07-05 11:19 | Emergency (ER) | payer MEDICAID, OTHER ==
[~2020-07-05] VITALS: Ht 170.2 cm; Wt 104.5 kg
[~2020-07-05 11:19] MED LIST changes: +LISI1TAB20 PO; +LISI1TAB37 PO; -LISI1TAB5 PO; -LISI1TAB7 PO; -TIZA4TAB PO; +TIZA4TAB2 PO; -WARF-78 PO; +WARF5TAB2 PO
[2020-07-05 12:00] VITALS: BP 155/87
--- NOTE | 2020-07-05 12:59 | RAD ---
HAND RIGHT 3V History: Reason: rt hand pain injury x1 month ago / Spl. Instructions: / History: Technique: 3 views right hand. Comparison: None. Findings: Normal alignment. No fracture. Advanced first metacarpophalangeal degenerative changes with radial subluxation Fragmentation. Impression: 1. No acute osseous abnormality. 2. 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 Electronically signed by: Agustin Ulrich DO (07/05/2020 12:56 PM) [id number]
--- NOTE | 2020-07-05 13:24 | PHYS DOC ---
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 She states when she went to cut a thick stand plant that she had to use both hands and when this happened she felt a sharp pain in the right knuckle and then had swelling. She states since then she is continue to work but she has noticed pain when she goes to make a fist or tries to grasp something. She states it is a sharp shooting pain and a slight burning just over the knuckle area. The sharp shooting pain will go up into her anterior arm. She denies numbness or tingling, coolness of the extremity, skin color changes. He states that she is currently on Diflucan and gabapentin for neuropathy. Patient has had bilateral knee replacements by Dr. Reyna. Patient has a history of diabetes, smoker, hypertension, appendectomy. She rates her pain with movement at a 7 out of 10. She states she does not want any other pain medicines. Review of Systems: Review of Systems: Constitutional: Denies fever or chills. [] Eyes: Denies change in visual acuity. [] HENT: Denies nasal congestion or sore throat. [] Respiratory: Denies cough or shortness of breath. [] Cardiovascular: Denies chest pain. Right middle knuckle 2+ edema. [] GI: Denies abdominal pain, nausea, vomiting, bloody stools or diarrhea. [] : Denies dysuria. [] Musculoskeletal: Denies back pain or joint pain. Right hand [] Integument: Denies rash. [] Neurologic: Denies headache, focal weakness or sensory changes. [] Endocrine: Denies polyuria or polydipsia. [] Lymphatic: Denies swollen glands. [] Psychiatric: Denies depression or anxiety. [] Heart Score: Risk Factors: Risk Factors: DM, Current or recent (<one month) smoker, HTN, HLP, family history of CAD, obesity. Risk Scores: Score 0 - 3: 2.5% MACE over next 6 weeks - Discharge Home Score 4 - 6: 20.3% MACE over next 6 weeks - Admit for Clinical Observation Score 7 - 10: 72.7% MACE over next 6 weeks - Early Invasive Strategies Allergies: Allergies: Allergies Coded Allergies Type Severity Reaction Last Updated Verified Penicillins Allergy Intermediate hives 11/04/17 Yes adhesive tape Allergy Unknown TAPE USED ON KNEE SURGERY, CAUSED BLISTERS 07/10/18 Yes coconut Adverse Reaction Intermediate Rash 11/04/17 Yes morphine Adverse Reaction Intermediate Nausea and Vomiting 11/04/17 Yes Physical Exam: PE: Constitutional: Well developed, well nourished, no acute distress, non-toxic appearance. [] HENT: Normocephalic, atraumatic, bilateral external ears normal, oropharynx moist, no oral exudates, nose normal. [] Eyes: PERRLA, EOMI, conjunctiva normal, no discharge. [] Neck: Normal range of motion, no tenderness, supple, no stridor. [] Cardiovascular:Heart rate regular rhythm, no murmur [] Lungs & Thorax: Bilateral breath sounds clear to auscultation [] Abdomen: Bowel sounds normal, soft, no tenderness, no masses, no pulsatile masses. [] Skin: Warm, dry, no erythema, no rash. [] Back: No tenderness, no CVA tenderness. [] Extremities: Right middle knuckle and finger tenderness, no cyanosis, no clubbing, right middle finger ROM not intact, right knuckle 2+ edema. [] Neurologic: Alert and oriented X 3, normal motor function, normal sensory function, no focal deficits noted. [] Psychologic: Affect normal, judgement normal, mood normal. [] Current Patient Data: Vital Signs: Vital Signs Date Time Temp Pulse Resp B/P (MAP) Pulse Ox O2 Delivery O2 Flow Rate FiO2 07/05/20 12:00 97.2 85 18 155/87 (109) 95 Room Air 97.2 EKG: EKG: [] Radiology/Procedures: Radiology/Procedures: [] Impression: [facility] [address] [place], [place] [id number] IMAGING REPORT Signed PATIENT: АЛЕКСАНДР PABLO ACCOUNT: [id number] : 1960 LOCATION: ER AGE: 60 SEX: F EXAM STATUS: REG ER ORD. PHYSICIAN: BIANKA TOBIN APRN REASON: rt hand pain injury x1 month ago PROCEDURE: HAND RIGHT 3V HAND RIGHT 3V History: Reason: rt hand pain injury x1 month ago / Spl. Instructions: / History: Technique: 3 views right hand. Comparison: None. Findings: Normal alignment. No fracture. Advanced first metacarpophalangeal degenerative changes with radial subluxation Fragmentation. Impression: 1. No acute osseous abnormality. 2. 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 Electronically signed by: Agustin Ulrich DO (07/05/2020 12:56 PM) [id number] DICTATED and SIGNED BY: AGUSTIN ULRICH DO DATE: 07/05/20 125 Course & Med Decision Making: Course & Med Decision Making Pertinent Labs and Imaging studies reviewed. (See chart for details) Radial pulse strong present. Alert and oriented x4. Patient ambulatory steady gait. Patient can make a fist but it is weaker than the left hand. Movement causes pain. Patient rates her pain a 7 out of 10. Pain is mostly with movement. Cap refills less than 2 seconds. No joint laxities. X-ray shows Impression: 1. No acute osseous abnormality. 2. 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 Patient placed in a Volar splint and to follow up with [facility]. Patient to continue taking diclofenac and gabapentin for pain as she has requested. Splint assessment: Neurovascularly intact post splint replacement with good fit. Patient's extremity symptoms have stabilized well they have been evaluated in the department and are appropriate for outpatient follow-up. No evidence of compartment syndrome, neurologic injury, vascular injury, open joint, open fracture, tendon laceration, or foreign body. [] Dragon Disclaimer: Clemente Disclaimer: This electronic medical record was generated, in whole or in part, using a voice recognition dictation system. Departure Departure Impression: Primary Impression: Degenerative joint disease of right hand Qualified Codes: M19.041 - Primary osteoarthritis, right hand Additional Impression: Subluxation of other carpometacarpal joint of left hand, initial encounter Disposition: 01 DC HOME SELF CARE/HOMELESS Condition: STABLE Referrals: CONSTANTIN CHRISTIANSON APRN (PCP) LAKSHMI BRINK II, MD Patient Instructions: Arthritis, Degenerative-Brief, Dislocation or Subluxation-SportsMed Additional Instructions: Follow-up with Dr. Brink. Wear splint and continue taking your pain medications at home. Can also use ice to help with pain. BIANKA TOBIN APRN Jul 05, 2020 13:24
== END 2020-07-05 14:05 | disposition home or self-care (01) ==
LOC: ER 11:19
DX: S63.051A Subluxation of other carpometacarpal joint of right hand, initial encounter (principal); M19.041 Primary osteoarthritis, right hand; E11.9 Type 2 diabetes mellitus without complications; I10 Essential (primary) hypertension; F17.200 Nicotine dependence, unspecified, uncomplicated; Z88.0 Allergy status to penicillin; Z88.5 Allergy status to narcotic agent; Z88.8 Allergy status to other drugs, medicaments and biological substances; Z91.018 Allergy to other foods; W27.1XXA Contact with garden tool, initial encounter; Y93.H2 Activity, gardening and landscaping; Y92.89 Other specified places as the place of occurrence of the external cause; Y99.8 Other external cause status
CPT/HCPCS: 29125; 73130; 99283